=== PATIENT | male | born 1940 | race Caucasian/White ===

== ENCOUNTER 2016-05-02 07:07 | Day surgery (SDC) | payer MEDICARE ==
[~2016-05-02] VITALS: Ht 177.8 cm; Wt 109.1 kg
[2016-05-02 07:48] LABS: BASOPHILS 0.5 % (0.0-2.0); EOSINOPHILS 4.8 % (0-7); HEMATOCRIT 39.3 % (42.0-54.0); HEMOGLOBIN 13.4 g/dL (13.5-17.5); IMMATURE GRANULOCYTES 0.4 % (0-5); LYMPHOCYTES 29.8 % (15-50); MCH 32.3 pg (26.0-34.0); MCHC 34.1 g/dL (31.0-37.0); MCV 94.7 fL (80.0-100.0); MEAN PLATELET VOLUME 10.2 fL (7.4-10.4); MONOCYTES 9.1 % (2-11); NEUTROPHILS 55.4 % (40-80); RBC 4.15 10x6/uL (4.20-6.10); RDW 13.5 % (11.5-14.5); WBC 7.9 10x3/uL (4.8-10.8)
[2016-05-02 07:53] LABS: PLATELET COUNT 197 10x3/uL (130-400)
[2016-05-02 07:56] LABS: ANION GAP 14.4 mmol/L (8-16); CALCIUM 9.1 mg/dL (8.5-10.1); CARBON DIOXIDE 25.4 mmol/L (21.0-32.0); CREATININE - SERUM 1.3 mg/dL (0.6-1.3); POTASSIUM - SERUM 3.8 mmol/L (3.5-5.1)
[2016-05-02] MEDS ORDERED: TOPROL XL50 MG PO (09:20)
[2016-05-02] MEDS ORDERED: COZAAR50 MG PO (09:21)
[2016-05-02] MEDS ORDERED: LIPITOR40 MG PO (09:21)
[2016-05-02] MEDS ORDERED: OMEPRAZOLE20 M1 PO (09:21)
[2016-05-02] MEDS ORDERED: LEVOTHYROXINE50 MCG PO (09:21)
[2016-05-02] MEDS ORDERED: FLOMAX0.4 MG PO (09:22)
[2016-05-02 09:28] VITALS: BP 145/76; Ht 177.8 cm; Wt 109.1 kg
--- NOTE | 2016-05-02 11:49 | NUR ---
1130 IV DC WITH CATHER TIP INTACT
--- NOTE | 2016-06-09 09:40 | OP ---
PATIENT NAME: DEE ST MEDICAL RECORD: [id number] :40 LOCATION:D.OPS ADMISSION DATE: SURGEON: JEAN PIERRE WHITTAKER MD DATE OF OPERATION: 05/02/2016 PREOPERATIVE DIAGNOSES: 1. Gastroesophageal reflux. 2. History of Becker esophagus, in need of surveillance upper endoscopy. 3. History of colon polyps, in need of a surveillance lower endoscopy. POSTOPERATIVE DIAGNOSES: 1. Gastroesophageal reflux. 2. History of Becker esophagus, in need of surveillance upper endoscopy. 3. History of colon polyps, in need of a surveillance lower endoscopy. 4. Residual of Becker esophagus. 5. Hiatal hernia. 6. Normal-appearing stomach otherwise. 7. Normal-appearing duodenum. 8. Normal colon and rectum. 9. Enlarged internal hemorrhoids. PROCEDURES: 1. Esophagogastroduodenoscopy with antral and distal esophageal biopsies. 2. Total colonoscopy to cecum. SURGEON: Jean Pierre Whittaker MD. CANVAS WORKER: None. BLOOD LOSS: Minimal. ANESTHESIA: IV sedation. COMPLICATIONS: None. The risks, possible complications and alternatives to procedure were explained to the patient. He elects to proceed. The reason for the anesthesia staff being present during the procedure includes anxiety regarding the procedure. ENDOSCOPIC COURSE: The patient was conveyed to endoscopy suite electively on 05/02/2016. IV sedation was induced by the anesthesia staff. A bite block was inserted. A gastroscope was inserted into the mouth. It was advanced easily into the hypopharynx. The esophagus was easily intubated as were the stomach and duodenum. Upon withdrawal, retroflexed and angulus views were obtained. Antral biopsies were obtained. Distal esophageal biopsies were obtained. The endoscope was then withdrawn under direct vision. I turned the patient 180 degrees and placed in the Maya position. A digital rectal examination was performed. A colonoscope was inserted through the anus. It was easily advanced to the cecum. The prep was excellent. I slowly withdrew the endoscope. I dragged the folds. A combination of a regular imaging as well as narrow band imaging were utilized. I noted no colonic polyps or masses. A retroflexed view was obtained in the rectum. The pullback was greater than a OPERATIVE REPORT [id number] DEE ST 14-minute pullback. I then unretroflexed the scope and removed it under direct vision. PLAN: For the patient's next surveillance upper endoscopy with biopsies for 2 years. I will plan for his next colonoscopy, which is a surveillance colonoscopy in 5 years as his colon looked very good and I think we can extend his surveillance from 3 years to 5 years. TRANSINT:[id number] Voice Confirmation ID: [id number] DOCUMENT ID: [id number] JEAN PIERRE WHITTAKER MD at 0940 CC: [id number] DICTATION DATE: 05/02/16 1202 YARDER PUNCHER: 05/02/16 2100 [facility] 05/02/16 [place] [id number]
--- NOTE | 2016-06-09 09:40 | HP ---
PATIENT: DEE ST MEDICAL RECORD: [id number] ACCOUNT: [id number] LOCATION:[facility] : 40 ADMISSION DATE: 05/02/16 HISTORY AND PHYSICAL EXAMINATION Here for upper and lower endoscopy. The patient has gastroesophageal reflux. He has a history of Becker's esophagus as well. He is to undergo surveillance upper endoscopy. The patient also has a history of colon polyps. For that reason, he is to undergo surveillance lower endoscopy. No dysphagia. No odynophagia. No abdominal pain. No hematochezia. The risks, possible complications, and alternatives to procedure were explained to the patient. He elects to proceed. No melena. No frequent diarrhea. No history of Crohn's disease. No history of colon cancer. No history of ulcerative colitis. He is not on a blood thinner. He does not have a heart stent. SOCIAL HISTORY: He smokes some cigars. PAST MEDICAL AND SURGICAL HISTORY: Hypothyroidism, on replacement therapy, hyperlipidemia, gastroesophageal reflux, which is controlled with medication, BPH, hip surgery, finger surgery, obesity, hypertension. REVIEW OF SYSTEMS: Negative for CVA or seizures. Negative for renal disease or hepatitis. Review of systems is negative other than as is described above. ALLERGIES: No known drug allergies. PHYSICAL EXAMINATION: GENERAL: The patient does not appear acutely ill. He does not appear chronically ill. VITAL SIGNS: Reviewed. HEAD: External ears appear normal. EYES: Extraocular movements are intact. NECK: Trachea is midline. CHEST: No intercostal retractions. PULMONARY: Nonlabored, no stridor. ABDOMEN: Nontender. EXTREMITIES: No peripheral cyanosis. PSYCHIATRIC: Normal affect. NEUROLOGIC: Nonfocal, no lethargy. The patient answers questions appropriately, moves all extremities well. IMPRESSION: 1. Becker's esophagus. 2. Gastroesophageal reflux. 3. History of colon polyps. PLAN: EGD with biopsies as well as surveillance colonoscopy. TRANSINT:[id number] Voice Confirmation ID: [id number] DOCUMENT ID: [id number] HISTORY AND PHYSICAL [id number] DEE ST ROBERT MD at 0940 CC: MONO FARRIS DO [id number] DICTATION DATE: 05/02/16 0956 OCCASIONAL BABYSITTER: 05/02/16 1021 [facility] 05/02/16 [facility] [address] [place] [address]
== END 2016-05-02 11:52 | disposition home or self-care (01) ==
LOC: D.OPS 07:07
PROVIDERS: Anesthesiology
DX: K22.70 Barrett's esophagus without dysplasia (principal); K44.9 Diaphragmatic hernia without obstruction or gangrene; K21.9 Gastro-esophageal reflux disease without esophagitis; K64.8 Other hemorrhoids; Z86.010 Personal history of colon polyps; E03.9 Hypothyroidism, unspecified; E78.5 Hyperlipidemia, unspecified; I10 Essential (primary) hypertension; E66.9 Obesity, unspecified; Z68.34 Body mass index [BMI] 34.0-34.9, adult; F17.290 Nicotine dependence, other tobacco product, uncomplicated

== ENCOUNTER 2018-07-09 10:34 | Day surgery (SDC) | payer MEDICARE ==
[~2018-07-09] VITALS: Ht 177.8 cm; Wt 113.6 kg
[~2018-07-09 10:34] MED LIST: COZAAR50 MG PO; FLOMAX0.4 MG PO; LEVOTHYROXINE50 MCG PO; LIPITOR40 MG PO; OMEPRAZOLE20 M1 PO; TOPROL XL50 MG PO
[2018-07-09 10:53] LABS: HEMATOCRIT 37.8 % (42.0-54.0); HEMOGLOBIN 12.9 g/dL (13.5-17.5); MCHC 34.1 g/dL (31.0-37.0); MCV 93.8 fL (80.0-100.0); MEAN PLATELET VOLUME 9.9 fL (7.4-10.4); RBC 4.03 10x6/uL (4.20-6.10); WBC 6.3 10x3/uL (4.8-10.8)
[2018-07-09 15:00] VITALS: BP 133/69; Ht 177.8 cm; Wt 113.6 kg
--- NOTE | 2018-07-09 16:23 | NUR ---
1620 [place] DIET SERVED.
--- NOTE | 2018-07-12 15:11 | HP ---
PATIENT: DEE ST MEDICAL RECORD: [id number] ACCOUNT: [id number] LOCATION:[place] : 40 ADMISSION DATE: 07/09/18 PCP: MONO FARRIS DO HISTORY AND PHYSICAL EXAMINATION HISTORY OF PRESENT ILLNESS: The patient is here for upper endoscopy for surveillance of the Becker's. SOCIAL HISTORY: Nonsmoker. CURRENT MEDICATIONS: Please see the nursing list. ALLERGIES: No known drug allergies. PAST MEDICAL AND SURGICAL HISTORY: Hypertension, hypothyroidism, gastroesophageal reflux, osteoarthritis. PHYSICAL EXAMINATION: GENERAL: The patient does not appear acutely ill. He does not appear chronically ill. VITAL SIGNS: Reviewed. EARS: External ears appear normal. EYES: Extraocular movements are intact. NECK: Trachea is midline. CHEST: No intercostal retractions. PULMONARY: Nonlabored, no stridor. IMPRESSION: Becker's esophagus. PLAN: Will be surveillance of upper endoscopy with biopsies. TRANSINT:[id number] Voice Confirmation ID: [id number] DOCUMENT ID: [id number] ASAD WHITTAKER MD at 1511 CC: MONO FARRIS DO [id number] DICTATION DATE: 07/09/18 1529 STUDENT CAREER DEVELOPMENT SPECIALIST: 07/09/18 1546 [facility] 07/09/18 [place] [id number] [place] [id number]
--- NOTE | 2018-07-12 15:11 | OP ---
PATIENT NAME: DEE ST MEDICAL RECORD: [id number] :40 LOCATION:.[facility] ADMISSION DATE: SURGEON: JEAN PIERRE WHITTAKER MD DATE OF OPERATION: 07/09/2018 PREOPERATIVE DIAGNOSIS: Becker's esophagus, in need of surveillance upper endoscopy with biopsies. POSTOPERATIVE DIAGNOSIS: Becker's esophagus, in need of surveillance upper endoscopy with biopsies. PROCEDURE: Esophagogastroduodenoscopy with antral and distal esophageal biopsies. SURGEON: Jean Pierre Whittaker MD SUPERVISOR WOOL SHEARING: None. BLOOD LOSS: Minimal. ANESTHESIA: IV sedation. COMPLICATIONS: None. The risks, possible complications, and alternatives to the procedure were explained to the patient. He elects to proceed. OPERATIVE COURSE: The patient was conveyed to endoscopy suite electively on 07/09/2018. IV sedation was induced by the anesthesia staff. A bite block was inserted. A gastroscope was inserted into the mouth. It was advanced easily into the hypopharynx. The esophagus was easily intubated as were the stomach and duodenum. Upon withdrawal, retroflexed and angulus views were obtained. Antral biopsies were obtained. Multiple distal esophageal biopsies were obtained. The degree of Becker's appeared to be minimal. The endoscope was then withdrawn under direct vision. I will see the patient in my office in 2-3 weeks. I plan for his next surveillance upper endoscopy to take place in 3 years and this likely will correspond to the year, where he will undergo surveillance colonoscopy as well due to history of colon polyps. TRANSINT:[id number] Voice Confirmation ID: [id number] DOCUMENT ID: [id number] JEAN PIERRE WHITTAKER MD at 1511 CC: [id number] DICTATION DATE: 07/10/18 1302 CHANGE MANAGEMENT COORDINATOR: 07/10/18 1537 [facility] 07/09/18 [place] [id number]
== END 2018-07-09 16:45 | disposition home or self-care (01) ==
LOC: D.OPS 10:34
PROVIDERS: Anesthesiology; ATTEND Surgery
DX: K22.70 Barrett's esophagus without dysplasia (principal); I10 Essential (primary) hypertension; E03.9 Hypothyroidism, unspecified; K21.9 Gastro-esophageal reflux disease without esophagitis; M19.90 Unspecified osteoarthritis, unspecified site; Z01.812 Encounter for preprocedural laboratory examination